=== PATIENT | male | born 1990 | race Caucasian/White ===

== ENCOUNTER 2024-08-06 11:23 | Inpatient (IN) | payer MEDICAID, OTHER ==
--- NOTE | 2024-08-06 11:51 | ED ---
Psych HPI <Venessa Augustin - Last Filed: 08/06/24 18:53> - General Source: patient, RN notes reviewed Mode of arrival: ambulatory Limitations: no limitations <Kameron Zamora - Last Filed: 08/07/24 06:08> - General Chief Complaint: Psychiatric Symptoms Stated Complaint: Suicidal Time Seen by Provider: 08/06/24 11:41 - History of Present Illness Initial Comments: 34-year-old male presents emergency department with multiple complaints. Patient states that he is depressed, suicidal and homeless. Patient plans to overdose. Patient also states that he is been having ongoing nausea abdominal discomfort and is concerned about STI. Patient has no dysuria denies fevers or chills chest pain shortness of breath no flank pain denies any prior abdominal surgeries denies any current medications. (Kameron Zamora) - Related Data Home Medications Medication Instructions Recorded Confirmed No Known Home Medications 08/06/24 08/06/24 Allergies Allergy/AdvReac Type Severity Reaction Status Date / Time No Known Allergies Allergy Verified 08/06/24 15:18 Review of Systems ROS Other: All systems not noted in ROS Statement are negative. <Venessa Augustin - Last Filed: 08/06/24 18:53> ROS Other: All systems not noted in ROS Statement are negative. <Kameron Zamora - Last Filed: 08/07/24 06:08> ROS Statement: Those systems with pertinent positive or pertinent negative responses have been documented in the HPI. Past Medical History Past Medical History: No Reported History History of Any Multi-Drug Resistant Organisms: None Reported Additional Past Surgical History / Comment(s): Back Past Psychological History: No Psychological Hx Reported Smoking Status: Never smoker Past Alcohol Use History: None Reported Past Drug Use History: None Reported <Kameron Zamora - Last Filed: 08/07/24 06:08> General Exam Limitations: no limitations General appearance: alert, in no apparent distress Head exam: Present: atraumatic, normocephalic, normal inspection Eye exam: Present: normal appearance, PERRL, EOMI. Absent: scleral icterus, conjunctival injection, periorbital swelling ENT exam: Present: normal exam, normal oropharynx, mucous membranes moist Neck exam: Present: normal inspection, full ROM. Absent: tenderness, meningismus, lymphadenopathy Respiratory exam: Present: normal lung sounds bilaterally. Absent: respiratory distress, wheezes, rales, rhonchi, stridor Cardiovascular Exam: Present: regular rate, normal rhythm, normal heart sounds. Absent: systolic murmur, diastolic murmur, rubs, gallop, clicks GI/Abdominal exam: Present: soft, tenderness, normal bowel sounds. Absent: distended, guarding, rebound, rigid Neurological exam: Present: alert Psychiatric exam: Present: anxious Skin exam: Present: warm, dry, intact, normal color. Absent: rash <Kameron Zamora - Last Filed: 08/07/24 06:08> Course Vital Signs 08/06/24 08/06/24 11:24 19:17 Temperature 97.4 F L 98 F Pulse Rate 97 90 Respiratory 18 18 Rate Blood Pressure 121/87 111/72 O2 Sat by Pulse 100 98 Oximetry Medical Decision Making - Lab Data Result diagrams: 08/06/24 12:35 08/06/24 12:35 <Venessa Augustin - Last Filed: 08/06/24 18:53> - Lab Data Result diagrams: 08/06/24 12:35 08/06/24 12:35 <Kameron Zamora - Last Filed: 08/07/24 06:08> - Medical Decision Making Patient is evaluated by EPS, he will require admission. Diagnosis/symptom? @Suicidal ideation Acute, or Chronic, or Acute on Chronic? @Acute Uncomplicated (without systemic symptoms) or Complicated (systemic symptoms)? @Complicated Side effects of treatment? @None Exacerbation, Progression, or Severe Exacerbation] @No Poses a threat to life or bodily function? @Yes (Venessa Augustin) Was pt. sent in by a medical professional or institution (, PA, SOFTWARE ENGINEERING SPECIALIST, urgent care, hospital, or halfway...) When possible be specific @ -No Did you speak to anyone other than the patient for history (EMS, parent, family, police, friend...)? What history was obtained from this source @ -No Did you review nursing and triage notes (agree or disagree)? Why? @ -I reviewed and agree with nursing and triage notes Were old charts reviewed (outside hosp., previous admission, EMS record, old EKG, old radiological studies, urgent care reports/EKG's, halfway records)? Report findings @ -No old charts were reviewed Differential Diagnosis (chest pain, altered mental status, abdominal pain women, abdominal pain men, vaginal bleeding, weakness, fever, dyspnea, syncope, headache, dizziness, GI bleed, back pain, seizure, CVA, palpatations, mental health, musculoskeletal)? @ -Differential Mental Health Depression, anxiety, bipolar, psychosis, schizophrenia, borderline personality, situational depression, adjustment disorder, behavioral disorder, brain tumor, malingering, substance abuse, encephalopathy, medication reaction, dementia, hypothyroidism, degenerative neurologic disorder, lupus.... This is not meant to be all-inclusive list EKG interpreted by me (3pts min.). @ -None X-rays interpreted by me (1pt min.). @ -None done CT interpreted by me (1pt min.). @ -None done U/S interpreted by me (1pt. min.). @ -None done What testing was considered but not performed or refused? (CT, X-rays, U/S, la bs)? Why? @ -None What meds were considered but not given or refused? Why? @ -None Did you discuss the management of the patient with other professionals (professionals i.e. , PA, SOFTWARE ENGINEERING SPECIALIST, lab, RT, psych nurse, geriatric social work professor, recreation attendant supervisor, teacher, police commanding officer, spring encaser)? Give summary @ -EPS evaluated patient Was smoking cessation discussed for >3mins.? @ -No Was critical care preformed (if so, how long)? @ -No Were there social determinants of health that impacted care today? How? (Homelessness, low income, unemployed, alcoholism, drug addiction, transportation, low edu. Level, literacy, decrease access to med. care, assisted, rehab)? @ -No Was there de-escalation of care discussed even if they declined (Discuss DNR or withdrawal of care, Hospice)? DNR status @ -No What co-morbidities impacted this encounter? (DM, HTN, Smoking, COPD, CAD, Cancer, CVA, ARF, Chemo, Hep., AIDS, mental health diagnosis, sleep apnea, morbid obesity)? @ -None Was patient admitted / discharged? Hospital course, mention meds given and route, prescriptions, significant lab abnormalities, going to OR and other per tinent info. (Kameron Zamora) - Lab Data Lab Results 08/06/24 08/06/24 08/06/24 Range/Units 12:26 12:35 12:35 WBC (3.8-10.6) k/uL RBC (4.30-5.90) m/uL Hgb (13.0-17.5) gm/dL Hct (39.0-53.0) % MCV (80.0-100.0) fL MCH (25.0-35.0) pg MCHC (31.0-37.0) g/dL RDW (11.5-15.5) % Plt Count (150-450) k/uL MPV Neutrophils % % Lymphocytes % % Monocytes % % Eosinophils % % Basophils % % Neutrophils # (1.3-7.7) k/uL Lymphocytes # (1.0-4.8) k/uL Monocytes # (0-1.0) k/uL Eosinophils # (0-0.7) k/uL Basophils # (0-0.2) k/uL Sodium (137-145) mmol/L Potassium (3.5-5.1) mmol/L Chloride (98-107) mmol/L Carbon Dioxide (22-30) mmol/L Anion Gap mmol/L BUN (9-20) mg/dL Creatinine (0.66-1.25) mg/dL Est GFR (CKD-EPI)AfAm (>60 ml/min/1.73 sqM) Est GFR (CKD-EPI)NonAf (>60 ml/min/1.73 sqM) Glucose (74-99) mg/dL Calcium (8.4-10.2) mg/dL Total Bilirubin (0.2-1.3) mg/dL AST (17-59) U/L ALT (4-49) U/L Alkaline Phosphatase (38-126) U/L Total Protein (6.3-8.2) g/dL Albumin (3.5-5.0) g/dL Urine Color Colorless Urine Appearance Clear (Clear) Urine pH 7.0 (5.0-8.0) Ur Specific [place] 1.008 (1.001-1.035) Urine Protein Negative (Negative) Urine Glucose (UA) Negative (Negative) Urine Ketones Negative (Negative) Urine Blood Negative (Negative) Urine Nitrite Negative (Negative) Urine Bilirubin Negative (Negative) Urine Urobilinogen <2.0 (<2.0) mg/dL Ur Leukocyte Esterase Negative (Negative) Urine Opiates Screen Not Detected (NotDetected) Ur Oxycodone Screen Not Detected (NotDetected) Urine Methadone Screen Not Detected (NotDetected) Ur Barbiturates Screen Not Detected (NotDetected) U Tricyclic Antidepress Not Detected (NotDetected) Ur Phencyclidine Scrn Not Detected (NotDetected) Ur Amphetamines Screen Not Detected (NotDetected) U Methamphetamines Scrn Not Detected (NotDetected) U Benzodiazepines Scrn Detected H (NotDetected) Urine Cocaine Screen Not Detected (NotDetected) U Marijuana (THC) Screen Not Detected (NotDetected) SARS-CoV-2 (PCR) Not Detected (Not Detectd) 08/06/24 08/06/24 Range/Units 12:35 12:35 WBC 5.6 (3.8-10.6) k/uL RBC 4.88 (4.30-5.90) m/uL Hgb 14.5 (13.0-17.5) gm/dL Hct 42.4 (39.0-53.0) % MCV 86.8 (80.0-100.0) fL MCH 29.7 (25.0-35.0) pg MCHC 34.2 (31.0-37.0) g/dL RDW 12.5 (11.5-15.5) % Plt Count 285 (150-450) k/uL MPV 8.0 Neutrophils % 72 % Lymphocytes % 20 % Monocytes % 5 % Eosinophils % 1 % Basophils % 1 % Neutrophils # 4.0 (1.3-7.7) k/uL Lymphocytes # 1.1 (1.0-4.8) k/uL Monocytes # 0.3 (0-1.0) k/uL Eosinophils # 0.0 (0-0.7) k/uL Basophils # 0.0 (0-0.2) k/uL Sodium 138 (137-145) mmol/L Potassium 3.9 (3.5-5.1) mmol/L Chloride 99 (98-107) mmol/L Carbon Dioxide 28 (22-30) mmol/L Anion Gap 11 mmol/L BUN 12 (9-20) mg/dL Creatinine 0.74 (0.66-1.25) mg/dL Est GFR (CKD-EPI)AfAm >90 (>60 ml/min/1.73 sqM) Est GFR (CKD-EPI)NonAf >90 (>60 ml/min/1.73 sqM) Glucose 101 H (74-99) mg/dL Calcium 10.1 (8.4-10.2) mg/dL Total Bilirubin 0.8 (0.2-1.3) mg/dL AST 27 (17-59) U/L ALT 18 (4-49) U/L Alkaline Phosphatase 42 (38-126) U/L Total Protein 7.4 (6.3-8.2) g/dL Albumin 5.0 (3.5-5.0) g/dL Urine Color Urine Appearance (Clear) Urine pH (5.0-8.0) Ur Specific [place] (1.001-1.035) Urine Protein (Negative) Urine Glucose (UA) (Negative) Urine Ketones (Negative) Urine Blood (Negative) Urine Nitrite (Negative) Urine Bilirubin (Negative) Urine Urobilinogen (<2.0) mg/dL Ur Leukocyte Esterase (Negative) Urine Opiates Screen (NotDetected) Ur Oxycodone Screen (NotDetected) Urine Methadone Screen (NotDetected) Ur Barbiturates Screen (NotDetected) U Tricyclic Antidepress (NotDetected) Ur Phencyclidine Scrn (NotDetected) Ur Amphetamines Screen (NotDetected) U Methamphetamines Scrn (NotDetected) U Benzodiazepines Scrn (NotDetected) Urine Cocaine Screen (NotDetected) U Marijuana (THC) Screen (NotDetected) SARS-CoV-2 (PCR) (Not Detectd) Disposition Time of Disposition: 18:54 <Venessa Augustin - Last Filed: 08/06/24 18:53> <Kameron Zamora - Last Filed: 08/07/24 06:08> Clinical Impression: Suicidal ideation Disposition: ADMITTED IP TO THIS HOSP Condition: Fair
[2024-08-06] MEDS: ONDANSETRON 4 MG/2 ML VIAL IVP STA (12:51)
[2024-08-06 13:08] LABS: Basophils % (A) 1 %; Eosinophils % (A) 1 %; HCT 42.4 % (39.0-53.0); HGB 14.5 gm/dL (13.0-17.5); Lymphocytes # (A) 1.1 k/uL (1.0-4.8); Lymphocytes % (A) 20 %; MCH 29.7 pg (25.0-35.0); MCHC 34.2 g/dL (31.0-37.0); MCV 86.8 fL (80.0-100.0); Monocytes # (A) 0.3 k/uL (0-1.0); Monocytes % (A) 5 %; Neutrophils % (A) 72 %; Platelet Count 285 k/uL (150-450); RBC 4.88 m/uL (4.30-5.90); RDW 12.5 % (11.5-15.5); WBC 5.6 k/uL (3.8-10.6)
[2024-08-06 13:19] LABS: ALT 18 U/L (4-49); AST 27 U/L (17-59); African American GFR (CKD) >90 (>60 ml/min/1.73 sqM); Alkaline Phosphatase 42 U/L (38-126); Anion Gap 11 mmol/L; Blood Urea Nitrogen 12 mg/dL (9-20); Calcium 10.1 mg/dL (8.4-10.2); Carbon Dioxide 28 mmol/L (22-30); Chloride 99 mmol/L (98-107); Glucose 101 mg/dL (74-99); Non-African American GFR(CKD) >90 (>60 ml/min/1.73 sqM); Potassium 3.9 mmol/L (3.5-5.1); Sodium 138 mmol/L (137-145); Total Bilirubin 0.8 mg/dL (0.2-1.3); Total Protein 7.4 g/dL (6.3-8.2)
[2024-08-06 13:23] LABS: Appearance,Urine Clear (Clear); Bilirubin,Urine Negative (Negative); Blood,Urine Negative (Negative); Color,Urine Colorless; Glucose,Urine (UA) Negative (Negative); Ketones,Urine Negative (Negative); Leukocyte Esterase,Urine Negative (Negative); Nitrite,Urine Negative (Negative); Protein,Urine Negative (Negative); Specific Gravity,Urine 1.008 (1.001-1.035); Urobilinogen,Urine <2.0 mg/dL (<2.0)
[2024-08-06 13:45] LABS: Amphetamine Screen,Urine Not Detected (NotDetected); Barbiturate Screen,Urine Not Detected (NotDetected); Benzodiazepines Screen,Urine Detected (NotDetected); Cocaine Screen,Urine Not Detected (NotDetected); Methadone Screen, Urine Not Detected (NotDetected); Opiate Screen,Urine Not Detected (NotDetected); Oxycodone Screen, Urine Not Detected (NotDetected); Phencyclidine Screen,Urine Not Detected (NotDetected); Tricyclic Antidepressant,Urine Not Detected (NotDetected); Urn Cannabinoid Scrn Not Detected (NotDetected)
[2024-08-06] MEDS: CALCIUM CARBONATE 500 MG CHEWABLE PO STA (15:51)
[2024-08-06] MEDS ORDERED: traZODone HCL 50 MG TAB PO PRN (23:55)
[2024-08-06] MEDS ORDERED: MAG HYDROX/AL HYDROX/SIMETH 355 ML BOTTLE PO PRN (23:55)
[2024-08-06] MEDS ORDERED: haloperidoL 5 MG TAB PO PRN (23:55)
[2024-08-06] MEDS ORDERED: MAGNESIUM HYDROXIDE 2,400 MG/30 ML CUP PO PRN (23:55)
[2024-08-06] MEDS ORDERED: LORazepam 2 MG/ML INJ IM PRN (23:55)
[2024-08-06] MEDS ORDERED: LORazepam 1 MG TAB PO PRN (23:55)
[2024-08-06] MEDS ORDERED: HALOPERIDOL LACTATE 5 MG/ML 1 ML VIAL IM PRN (23:55)
[2024-08-06] MEDS ORDERED: ACETAMINOPHEN TAB 325 MG TAB PO PRN (23:55)
[2024-08-06] MEDS ORDERED: IBUPROFEN 600 MG TAB PO PRN (23:55)
[2024-08-07 04:35] VITALS: RESP 16; TEMP 97.9
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
[2024-08-07] MEDS: MIRTAZAPINE 15 MG TAB PO SCH (22:36)
--- NOTE | 2024-08-08 03:37 | P.CONS ---
History of Present Illness - Reason for Consult Consult date: 08/08/24 - History of Present Illness The patient is a 34-year-old male currently homeless who had presented to the emergency room with complaints of depression and suicidal ideation. Patient was admitted to the mental health unit where he was seen and evaluated while accompanied by the MHU RN. The patient reports that he has been concerned about multiple growths over his body which have been somewhat tender over the last few months. Reports that he initially noticed the growth several years ago and that they have been gradually worsening. Notes that they are largely on his thighs bilaterally and that there are milder ones on his right arm. Denies any recent weight loss. Denies any additional complaints. Denied experiencing chest discomfort, shortness of breath, fever, chills, cough, nausea, vomiting, abdominal pain, diarrhea. Patient denies alcohol, tobacco, or illicit substance use. Review of systems: Pertinent positives and negatives as discussed in HPI, a complete review of systems was performed and all other systems are negative. Physical examination: General: non toxic, no distress, appears at stated age, normal weight Derm: no unusual rashes/lesions, no unusual ecchymoses, warm, dry, right thigh lateral mobile round palpable mass roughly 7 cm with mild tenderness, left thigh posterolateral 12 cm mobile round mildly tender mass Head: atraumatic, normocephalic, symmetric Eyes: EOMI, no lid lag, anicteric sclera ENT: Nose and ears atraumatic, no thrush, no pharyngeal erythema Neck: trachea midline, supple Mouth: no lip lesion, mucus membranes moist Cardiovascular: S1S2 reg, no murmur, no edema Lungs: CTA bilateral, no rhonchi, no rales , no accessory muscle use Abdominal: soft, nontender to palpation, no guarding Ext: no gross muscle atrophy, no contractures, Neuro: No gross focal neuro deficits noted Psych: Alert, oriented, appropriate affect Assessment: Multiple palpable mobile round soft masses on bilateral thighs Depression and suicidal ideation Imaging: None performed Data Review: Laboratory values reviewed with WBC count 5.6, hemoglobin 14.5, platelets 285, sodium 138 potassium 3.9, BUN 12, creatinine 0.74, glucose 101 with UA unremarkable and urine toxicology positive for benzodiazepines Plan: Obtain ultrasound of masses Defer management of depression and suicidal ideation to the primary psychiatry service Thank you for allowing us to participate in the care of this patient. We will follow peripherally. Do not hesitate to contact us with questions. Someone can be reached from the [facility] hospitalist group at all hours of the day at [phone]. Past Medical History Past Medical History: No Reported History Additional Past Medical History / Comment(s): Scoliosis, Hypotension History of Any Multi-Drug Resistant Organisms: None Reported Past Surgical History: Back Surgery Additional Past Surgical History / Comment(s): Back Past Anesthesia/Blood Transfusion Reactions: No Reported Reaction Past Psychological History: No Psychological Hx Reported Smoking Status: Never smoker Past Alcohol Use History: None Reported Past Drug Use History: None Reported - Past Family History Mother Family Medical History: Hypertension Medications and Allergies Home Medications Medication Instructions Recorded Confirmed Type No Known Home Medications 08/06/24 08/06/24 History Allergies Allergy/AdvReac Type Severity Reaction Status Date / Time No Known Allergies Allergy Verified 08/06/24 15:18 Physical Exam Vitals: Intake and Output 08/07/24 08/07/24 08/08/24 14:59 22:59 06:59 Other: Weight 63.8 kg Results CBC & Chem 7: 08/06/24 12:35 08/06/24 12:35
[2024-08-08 09:28] LABS: Basophils % (A) 1 %; Eosinophils # (A) 0.2 k/uL (0-0.7); Eosinophils % (A) 4 %; HCT 46.6 % (39.0-53.0); HGB 15.3 gm/dL (13.0-17.5); Lymphocytes # (A) 2.2 k/uL (1.0-4.8); Lymphocytes % (A) 41 %; MCH 29.1 pg (25.0-35.0); MCHC 32.9 g/dL (31.0-37.0); MCV 88.6 fL (80.0-100.0); Mean Platelet Volume 8.1; Monocytes # (A) 0.3 k/uL (0-1.0); Monocytes % (A) 6 %; Neutrophils # (A) 2.4 k/uL (1.3-7.7); Neutrophils % (A) 46 %; Platelet Count 287 k/uL (150-450); RBC 5.26 m/uL (4.30-5.90); RDW 12.6 % (11.5-15.5); WBC 5.2 k/uL (3.8-10.6)
[2024-08-08 09:47] LABS: ALT 15 U/L (4-49); AST 20 U/L (17-59); African American GFR (CKD) >90 (>60 ml/min/1.73 sqM); Albumin 4.5 g/dL (3.5-5.0); Alkaline Phosphatase 37 U/L (38-126); Anion Gap 7 mmol/L; Blood Urea Nitrogen 20 mg/dL (9-20); Carbon Dioxide 33 mmol/L (22-30); Chloride 100 mmol/L (98-107); Glucose 104 mg/dL (74-99); Non-African American GFR(CKD) 85 (>60 ml/min/1.73 sqM); Potassium 4.7 mmol/L (3.5-5.1); Sodium 140 mmol/L (137-145); Total Bilirubin 0.8 mg/dL (0.2-1.3); Total Protein 6.8 g/dL (6.3-8.2)
--- NOTE | 2024-08-08 15:05 | US ---
EXAMINATION TYPE: US extremity nonvasc mass MICHAEL DATE OF EXAM: 08/08/2024 COMPARISON: NONE CLINICAL INDICATION: Male, 34 years old with history of bilateral thigh lesions, soft, mobile; Lumps in bilateral legs that are mobile. TECHNIQUE: Scanned upper legs at patient's palpable areas of concern. FINDINGS: Right le. Isoechoic area seen upper medial thigh with minimal vascularity: 3.5 x 2.9 x 1.0 cm. 2. Smaller isoechoic area seen more medially: 1.2 x 1.1 x 0.3 cm. 3. Isoechoic area seen with minimal vascularity lateral thigh: 3.4 x 3.2 x 0.6 cm. Left le. Isoechoic area seen medial/posterior upper leg with minimal vascularity: 4.6 x 5.7 x 1.5 cm. 2. Isoechoic area seen anterior thigh with minimal vascularity: 4.6 x 3.4 x 0.9 cm. 3. Isoechoic area seen posterior upper le.5 x 4.5 x 0.9 cm. These lesions are all well-circumscribed and demonstrates striations similar to surrounding fat. IMPRESSION: Multiple lipomas within the thighs as described above.
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
[2024-08-08 17:05] VITALS: BMI 19.1
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
--- NOTE | 2024-08-10 15:59 | P.PN ---
Progress Note - Text Progress Note Date: 08/10/24 Follow-up Mediation Review Chief Complaint: I am doing fine. Subjective: The patient feeling fine. He is not experiencing any symptoms of depression. He is anxious about disposition. He noted that his cousin Nivia is going to help him find a place, either with a relative here or back in [place]. She will also help him to go to [place] if no suitable place is found.. She wanted to make sure that he will have an appointment with out-pt psychiatric facility for follow-up after discharge. She is going to come and visit with the patient this evening. She also intends to talk to social work to get all the information on discharge planning. The patient feels that he is ready for discharge, if he has a place to live. He does not want to be on the street. He reported no side effects from his medications. He has been compliant taking medications. He noted that he is worried about his living arrangements after discharge. Leading questions: The patient admitted to Anxiety. Denied SI or HI. Denied symptoms consistent with psychosis Sleep and Appetite: Fair Objective- MSE: Alert and attentive. Orientation times three. Dressed and Groomed: Appropriately. Pleasant and cooperative. Psychomotor Activity: Normal. Speech: Normal in tone, quality, and quantity. Mood: Anxious. Affect: Appropriate to the mood. SI or HI: None. Perceptual disturbance: None. Thought Content: No paranoia or other delusional thinking noted. Thought Process: Normal. Cognition: Intact Judgment and Insight: Fair AIMS: Normal. Labs: Available tests reviewed. Diagnosis: Major depressive disorder, moderate, recurrent R/O Schizotypal personality disorder. Plan and Recommendations: Continue current Medications. Monitor MS and side effects of medications and adjust medications accordingly. Provide supportive psychotherapy. The patient provided psychoeducation and advised The patient provided Substance abuse counseling. Smoke cessation therapy. The patient to attend paz activities. Medication Consent with explanation of risk/benefits and side effects: Explained and obtained.
[2024-08-11 13:11] VITALS: BP 115/77; PULSE 109
--- NOTE | 2024-08-11 14:59 | P.PN ---
Progress Note - Text Progress Note Date: 08/11/24 Follow-up Mediation Review Chief Complaint: I am doing fine. Subjective: The patient feeling fine. He is not experiencing any symptoms of depression. He indicated that his cousin will drive him to the prison after discharge. His aunt confirmed this. The patient noted that he took his medications last night. He thinks it helped him a lot. He slept well and did not feel groggy this morning. He reported no side effects from his medications. He has been compliant taking medications. He had a nice visit with his cousin last evening. Leading questions: The patient admitted to Anxiety. Denied SI or HI. Denied symptoms consistent with psychosis Sleep and Appetite: Fair Objective- MSE: Alert and attentive. Orientation times three. Dressed and Groomed: Appropriately. Pleasant and cooperative. Psychomotor Activity: Normal. Speech: Normal in tone, quality, and quantity. Mood: Anxious. Affect: Appropriate to the mood. SI or HI: None. Perceptual disturbance: None. Thought Content: No paranoia or other delusional thinking noted. Thought Process: Normal. Cognition: Intact Judgment and Insight: Fair AIMS: Normal. Labs: Available tests reviewed. Diagnosis: Major depressive disorder, moderate, recurrent R/O Schizotypal personality disorder. Plan and Recommendations: Continue current Medications. Monitor MS and side effects of medications and adjust medications accordingly. Provide supportive psychotherapy. The patient provided psychoeducation and advised The patient provided Substance abuse counseling. Smoke cessation therapy. The patient to attend paz activities. Medication Consent with explanation of risk/benefits and side effects: Explained and obtained.
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
== END 2024-08-12 12:56 | disposition home or self-care (01) | DRG 751 ==
LOC: EC 11:23 → 3MHU 22:48
PROVIDERS: ADMIT Psychiatry & Neurology Psychiatry; ATTEND Psychiatry & Neurology Psychiatry
DX: F33.2 Major depressive disorder, recurrent severe without psychotic features (principal); F41.9 Anxiety disorder, unspecified; R22.43 Localized swelling, mass and lump, lower limb, bilateral; M41.9 Scoliosis, unspecified; R45.851 Suicidal ideations; Z59.00 Homelessness unspecified; Z79.899 Other long term (current) drug therapy; Z11.52 Encounter for screening for COVID-19
CPT/HCPCS: 36415; 76882; 80053; 80306; 81003; 82075; 83036; 84443; 85025; 87635; 96374; 99285